=== PATIENT | female | born 1940 | race African-American/Black ===

== ENCOUNTER → 2021-05-09 | Outpatient (CLI) | payer MEDICARE ==
[2014-03-11 11:15] VITALS: BP 123/63
[~2021-05-09] MED LIST: ALPR0.5T PO; CALC-450 PO; CRESTOR20 MG PO; LATA2.5D3 OP; LOSA100T14 PO; MULT-658 PO; OMEP40CA7 PO; POTA20TA12 PO; REGADENOSON 0.4 MG/5 ML DISP.SYRIN. IV ONE; TRIA1TAB5 PO
--- NOTE | 2021-05-09 18:54 | RAD ---
MR#: [id number] Date of Study: 05/09/2021 Ordering Physician: FRED MORAN, Referring Physician: KIKO STAUFFER Tech: RT Arsenio (R) (N) APPROVED REPORT Test Type: Pharmacological Stress Nurse/Tech: Michelle Tidwell RN Test Indications: Hypertension and preop clearance for nephrectomy Cardiac History: Hypertension Medications: See Electronic Medical Record Medical History: See Electronic Medical Record Resting ECG: SR with BBB Resting Heart Rate: 69 bpm Resting Blood Pressure: 163/78mmHg Pretest Chest Pain: No chest pain Nurse/Tech Notes S1,S2 and lungs clear to auscultation. Consent: The procedure was explained to the patient in lay terms. Informed consent was witnessed. Tomas eout was entered into [employer]. History and Stress Test performed by RT Preeti (R) (N) Pharm. Details Pharmacologic stress testing was performed using 0.4mg per 5ml of regadenoson given intravenously ove r 7-10 seconds. Stress Symptoms No chest pain or symptoms. POST EXERCISE Reason for Termination: Infusion complete Target HR: No Max Blood Pressure: 168/83mmHg Blood Pressure response to exercise: Normal blood pressure response during stress. Heart Rate response to exercise: WNL Chest Pain: No. Arrhythmia: No. ST Change: No. INTERPRETATION Stress EKG Conclusion: No evidence of stress induced EKG changes. Imaging Protocol IMAGE PROTOCOL: Rest Tc-99m/stress Tc-99m 1 day Rest: Stress: Viability: Radiopharm.Tc99m QglsxvejwBe79a Sestamibi [id number] 33mCi Duration 13min. 13min. Img Date 05/09/2021 05/09/2021 Inj-Img [id number]. 60min. Rest Admin Site:IV - Left AntecubitalAdministrator:RT Arsenio (R)(N) Stress Admin Site: IV - Left AntecubitalAdministrator: ISRRAEL Sarkar STRESS DATA End Diast. Vol.38.0mlLVEDV index BSA19.0ml End Syst. Vol.4.0mlLVESV index BSA2.0ml Myocardial Mass79.0gEject. Pvyqpqcp48.0% Stress Scores Regional WT0.00Summed WT0.00 Regional WM0.00Summed WM0.00 The rest and stress images show normal perfusion, normal contraction and thickening. LV Perf. Quant 17 Seg. SSS0.00 17 Seg. SRS0.00 17 Seg. SDS0.00 Stress Defect Extent (% LAD)0.00Rest Defect Extent (% LAD)0.00Rev. Defect Extent (% LAD)0.00 Stress Defect Extent (% LCX) 0.00Rest Defect Extent (% LCX)0.00Rev. Defect Extent (% LCX)0.00 Stress Defect Extent (% RCA)0.00Rest Defect Extent (% RCA)0.00Rev. Defect Extent (% RCA)0.00 Stress Defect Extent (% THUY)0.00Rest Defect Extent (% THUY)0.00Rev. Defect Extent (% THUY)0.00 Other Information Quality:Average Risk Assessment: Low Risk Conclusion 1. No evidence of EKG changes with stress testing. 2. Normal perfusion at stress/rest. 3. Low risk study. 4. EF > 60%. Signed by : Fred Moran, Electronically Approved : 05/09/2021 18:54:16
== END ==
LOC: NM 09:50
PROVIDERS: ATTEND Internal Medicine Cardiovascular Disease
DX: I10 Essential (primary) hypertension (principal)
CPT/HCPCS: 78452; 93017; A9500; J2785